=== PATIENT | female | born 1980 | race Caucasian/White ===

== ENCOUNTER 2017-11-25 20:30 | Outpatient (CLI) | payer MEDICARE, MEDICAID | END 2017-11-25 20:31 | disposition home or self-care (01) | LOC: SLEEPLAB 20:30 | PROVIDERS: ATTEND Family Medicine | DX: G47.33 Obstructive sleep apnea (adult) (pediatric) (principal); R53.83 Other fatigue; E66.9 Obesity, unspecified; R06.83 Snoring; I10 Essential (primary) hypertension; G47.00 Insomnia, unspecified; G47.10 Hypersomnia, unspecified; F31.9 Bipolar disorder, unspecified; Z68.42 Body mass index [BMI] 45.0-49.9, adult | CPT/HCPCS: 95810 ==

== ENCOUNTER 2017-12-29 19:30 | Outpatient (CLI) | payer MEDICARE, MEDICAID | END 2017-12-29 19:31 | disposition home or self-care (01) | LOC: SLEEPLAB 19:30 | PROVIDERS: ATTEND Family Medicine | DX: G47.33 Obstructive sleep apnea (adult) (pediatric) (principal); R53.83 Other fatigue; E66.9 Obesity, unspecified; R06.83 Snoring; Z68.42 Body mass index [BMI] 45.0-49.9, adult | CPT/HCPCS: 95811 ==

== ENCOUNTER 2018-07-08 04:48 | Outpatient (CLI) | payer MEDICARE, MEDICAID ==
[2018-07-08 09:26] LABS: #Eosinphils 0.1 thou/uL (0.0-0.7); #Lymphocytes 2.4 thou/uL (1.20-3.40); #Monocytes 0.5 thou/uL (0.11-0.59); #Neutrophils 6.9 thou/uL (1.40-6.50); %Basophils 0.1 % (0.0-1.0); %Eosinophils 1.4 % (0.0-10.0); %Lymphocytes 23.6 % (21.0-51.0); %Monocytes 5.4 % (0.0-10.0); %Neutrophils 69.4 % (42.0-75.0); Hemoglobin 14.6 g/dL (12.0-16.0); Mean Corpuscular HGB CONC 32.7 g/dL (32.0-36.0); Mean Corpuscular Hemoglobin 28.7 pg (27.0-31.0); Mean Corpuscular Volume 87.9 fL (78.0-98.0); Mean Platelet Volume 7.4 fL (7.4-10.4); Platelet Count 263 thou/uL (130-400); RBC Distribution Width 13.4 % (11.5-14.5); Red Blood Cell (RBC) Count 5.09 mill/uL (4.20-5.40); White Blood Cell (WBC) Count 9.9 thou/uL (4.8-10.8)
[2018-07-08 09:33] LABS: BHCG - Serum Negative (NEGATIVE); Pregs Control Background? CLEAR/WHITE (CLR/WHITE); Pregs Control Bar Appear? YES (CONTROL BAR)
--- NOTE | 2018-07-08 09:34 | RAD ---
XR Chest Pa Lat STANDARD HISTORY: Preop COMPARISON: None. FINDINGS: Heart size is upper limits of normal. Mediastinal structures appear unremarkable. The lungs are clear of infiltrates. No significant bony findings. IMPRESSION: No active intrathoracic disease.
[2018-07-08 09:53] LABS: ALT (SGPT) 26 U/L (8-55); AST (SGOT) 14 U/L (5-34); Albumin 4.6 g/dL (3.5-5.0); Alkaline Phosphatase 75 U/L (40-150); Anion Gap 14 mmol/L (10-20); BUN (Urea Nitrogen) 11 mg/dL (7.0-18.7); Bilirubin, Direct 0.2 mg/dL (0.1-0.3); Bilirubin, Total 0.4 mg/dL (0.2-1.2); Calc. Creatinine Clearance 0 mL/min (70-130); Calcium 9.9 mg/dL (7.8-10.44); Carbon Dioxide 27 mmol/L (22-29); Chloride 103 mmol/L (98-107); Estimated GFR-MDRD 61; Globulin 3.2 g/dL (2.4-3.5); Glucose 102 mg/dL (70-105); Potassium 3.6 mmol/L (3.5-5.1); Protein, Total 7.8 g/dL (6.0-8.3); Sodium 140 mmol/L (136-145)
== END 2018-07-08 04:49 | disposition home or self-care (01) ==
LOC: LABBT 04:48
PROVIDERS: ATTEND Surgery
DX: Z01.818 Encounter for other preprocedural examination (principal); G47.30 Sleep apnea, unspecified; Z68.41 Body mass index [BMI] 40.0-44.9, adult
CPT/HCPCS: 71046; 80053; 80076; 83036; 84703; 85025; 93005; 93010

== ENCOUNTER 2018-07-08 08:30 | Inpatient (IN) | payer MEDICARE, MEDICAID ==
[2018-07-08 08:36] VITALS: BMI 47.0
[2018-07-13] MEDS ORDERED: Fentanyl 100 MCG/2 ML VIAL ONE ×3 (06:33→09:12)
[2018-07-13] MEDS ORDERED: Lidocaine 2% Jelly 5 ML TUBE ONE (06:33)
[2018-07-13] MEDS ORDERED: Heparin 5,000 UNITS/ML VIAL ONE (06:35)
[2018-07-13] MEDS ORDERED: Midazolam HCl 2 mg/2 ml Vial ONE (07:10)
[2018-07-13] MEDS ORDERED: Bupivacaine/Epinephrine 0.25% 30 ML VIAL ONE (07:39)
[2018-07-13] MEDS ORDERED: Hydrocodone-Acetamin 15 ML UDCUP PO PRN (08:38)
[2018-07-13] MEDS ORDERED: diphenhydrAMINE 50 MG/ML VIAL IVP PRN ×2 (08:38→09:16)
[2018-07-13] MEDS ORDERED: Promethazine HCl 25 MG/ML VIAL IM PRN ×3 (08:38→09:16)
[2018-07-13] MEDS ORDERED: Dextrose 50% Abboject 50 ML SYRINGE SLOW IVP PRN (08:38)
[2018-07-13] MEDS ORDERED: Ondansetron PF 4 MG/2 ML Vial IVP PRN ×2 (08:38→09:16)
[2018-07-13] MEDS ORDERED: Dextrose 5% in Water 1,000 ML IV PRN (08:38)
[2018-07-13] MEDS ORDERED: hydrALAZINE 20 MG/ML VIAL SLOW IVP PRN (08:38)
[2018-07-13] MEDS ORDERED: Ondansetron HCl/PF 4 MG/2 ML Vial IVP PRN (08:48)
[2018-07-13] MEDS ORDERED: Promethazine HCl 25 MG/ML VIAL SLOW IVP PRN (08:48)
[2018-07-13] MEDS ORDERED: Promethazine HCl 25 MG/ML VIAL ONE (08:59)
[2018-07-13] MEDS ORDERED: Naloxone HCl 0.4 mg/ml Vial IV PRN (09:16)
[2018-07-13] MEDS ORDERED: Ketorolac Tromethamine 30 MG/ML VIAL IVP PRN (09:16)
[2018-07-13] MEDS ORDERED: diphenhydrAMINE 25 MG CAP PO PRN (09:16)
[2018-07-13] MEDS ORDERED: fentaNYL Citrate/PF 2,000 MCG in Sodium Chloride 0.9% 60 ML IV PRN (09:16)
[2018-07-13] MEDS ORDERED: Zolpidem Tartrate 5 MG TAB PO PRN (09:16)
[2018-07-13] MEDS ORDERED: diphenhydrAMINE 50 MG/ML VIAL IM PRN (09:16)
[2018-07-13] MEDS ORDERED: Ondansetron PF 4 MG/2 ML Vial ONE (09:22)
[2018-07-13] MEDS ORDERED: Rocuronium Bromide 10 MG/ML (10ML VIAL) ONE (09:22)
[2018-07-13] MEDS ORDERED: Ketorolac Tromethamine 30 MG/ML VIAL ONE (09:22)
[2018-07-13] MEDS ORDERED: Glycopyrrolate 0.2 MG/ML 5 ML SYRINGE ONE (09:22)
[2018-07-13] MEDS ORDERED: PROPOFOL 200 MG/20 ML VIAL ONE (09:22)
[2018-07-13] MEDS ORDERED: Lidocaine 1% PF 5 ML VIAL ONE (09:22)
[2018-07-13] MEDS ORDERED: PHENYLEPHRINE-NS 100 MCG/ML 10 ML SYRINGE ONE (09:22)
[2018-07-13] MEDS ORDERED: PROVENTIL INHALER 6.7 G (200 INHALATIONS) ONE (09:22)
[2018-07-13] MEDS ORDERED: ePHEDrine 50 MG/ML VIAL ONE (09:22)
[2018-07-13] MEDS ORDERED: Dexamethasone 20 MG/5 ML VIAL ONE (09:22)
[2018-07-13] MEDS ORDERED: Communication Order-Pharmacy FS SCH (09:30)
[2018-07-13] MEDS: Pantoprazole 40 MG VIAL IVP SCH (10:54)
[2018-07-13] MEDS: Enoxaparin Sodium 40 MG/0.4 ML SYRINGE SC SCH (10:56)
--- NOTE | 2018-07-13 11:17 | OP ---
DATE OF PROCEDURE: 07/13/2018 PREOPERATIVE DIAGNOSIS: Morbid obesity. PROCEDURE PERFORMED: Laparoscopic sleeve gastrectomy, esophagogastroscopy. INDICATIONS: A 37-year-old female morbidly obese, who has attempted multiple weight loss programs without success. FINDINGS: 38-Sami bougie used. DESCRIPTION OF PROCEDURE: After informed consent was obtained, the patient was taken to the operating room and given general endotracheal anesthesia. She was placed in the supine position. Abdomen was prepped and draped in usual fashion. Local anesthesia infiltrated subcutaneously, and a 12 mm incision was performed approximately 8 inches below the xiphoid slightly to left. Veress needle inserted. Drop test performed. Pneumoperitoneum was created to a volume of 2 L of carbon dioxide. Utilizing a bladeless 12 mm trocar and 0-degree laparoscope, direct visual entry into abdominal cavity was performed. Pneumoperitoneum was created to a pressure of 15 mmHg. The patient was placed in steep reverse Trendelenburg position. Nilo liver retractor inserted. Left lobe of the liver retracted superiorly. Pylorus identified, 12 mm port placed right beneath it, and two 12s placed in the left subcostal. The omentum was taken off the greater curvature 5 cm from the pylorus utilizing a LigaSure. Short gastrics divided with the LigaSure and left crura divided with LigaSure. A 38-Sami bougie inserted, directed into the antrum. The linear 60 mm green load stapler used to divide the antrum to the bougie, gold load along the bougie, and a series of blues through the angle of His. Intraoperative endoscopy was performed. The video endoscope inserted under direct vision and advanced into the sleeve. The staple line inspected. There was no bleeding. Staple line then tested by inflating the new stomach with pressurized air and water. There was no air leak. Stomach decompressed, scope removed. The remnant stomach removed from the abdomen through the left lateral port site. The fascia closed with 0 Vicryl suture and the GraNee needle. Trocars and retractors removed. Skin closed with interrupted 4-0 Rapide. Dermabond applied. The patient tolerated the procedure well, transferred to Recovery in good condition. Sponge and needle count verified correct x2. Job ID: [id number]
[2018-07-13] MEDS: D5 1/2 NS w/20 mEq KCL 1,000 ML IV SCH ×2 (13:54→21:54)
[2018-07-14] MEDS: D5 1/2 NS w/20 mEq KCL 1,000 ML IV SCH (05:39)
[2018-07-14 06:44] LABS: #Eosinphils 0.1 thou/uL (0.0-0.7); #Lymphocytes 2.3 thou/uL (1.20-3.40); #Monocytes 0.6 thou/uL (0.11-0.59); #Neutrophils 6.9 thou/uL (1.40-6.50); %Basophils 0.2 % (0.0-1.0); %Eosinophils 0.6 % (0.0-10.0); %Lymphocytes 22.9 % (21.0-51.0); %Monocytes 6.3 % (0.0-10.0); %Neutrophils 70.1 % (42.0-75.0); Hemoglobin 11.8 g/dL (12.0-16.0); Mean Corpuscular HGB CONC 33.1 g/dL (32.0-36.0); Mean Corpuscular Hemoglobin 29.2 pg (27.0-31.0); Mean Corpuscular Volume 88.4 fL (78.0-98.0); Mean Platelet Volume 7.5 fL (7.4-10.4); Platelet Count 240 thou/uL (130-400); RBC Distribution Width 13.2 % (11.5-14.5); Red Blood Cell (RBC) Count 4.04 mill/uL (4.20-5.40); White Blood Cell (WBC) Count 9.9 thou/uL (4.8-10.8)
[2018-07-14 07:00] LABS: Anion Gap 8 mmol/L (10-20); BUN (Urea Nitrogen) 8 mg/dL (7.0-18.7); Calc. Creatinine Clearance 231 mL/min (70-130); Calcium 8.6 mg/dL (7.8-10.44); Carbon Dioxide 29 mmol/L (22-29); Chloride 103 mmol/L (98-107); Estimated GFR-MDRD 79; Glucose 94 mg/dL (70-105); Potassium 4.3 mmol/L (3.5-5.1); Sodium 136 mmol/L (136-145)
[2018-07-14 07:59] VITALS: BP 112/74; TEMP 98.5
--- NOTE | 2018-07-14 08:24 | RAD ---
EXAM: XR UGI Single Contrast No Air PROVIDED CLINICAL HISTORY: Post gastric sleeve procedure COMPARISON: None FINDINGS: Approximately 15 mL of Gastrografin was administered by mouth. There is mild transient holdup of cont rast at the GE junction, but contrast eventually flows into the stomach and subsequently into the small bowel without significant holdup of contrast. There is no extravasation of contrast seen to sug gest a leak. IMPRESSION: Postsurgical changes related to gastric sleeve procedure. No extravasation of contrast is seen to sug gest a leak.
[2018-07-14] MEDS: Enoxaparin Sodium 40 MG/0.4 ML SYRINGE SC SCH (08:29)
[2018-07-14] MEDS: Pantoprazole 40 MG VIAL IVP SCH (08:30)
--- NOTE | 2018-07-14 11:23 | DIS ---
DATE OF ADMISSION: 07/13/2018 DATE OF DISCHARGE: 07/14/2018 DISCHARGE DIAGNOSIS: Morbid obesity. PROCEDURES DURING ADMISSION: Laparoscopic sleeve gastrectomy, intraoperative esophagogastroscopy, postoperative Gastrografin swallow. HOSPITAL COURSE: The patient was admitted and taken to the operating room, where she underwent sleeve gastrectomy. Postoperatively, she has done well. She is tolerating liquids well. Pain is controlled on p.o. medications. She was discharged home on hydrocodone and Zofran. She will follow up with me in 2 weeks. Job ID: [id number]
== END 2018-07-14 12:15 | disposition home or self-care (01) | DRG 621 ==
LOC: SURG A 07-13 05:35 → SURG B 07-13 08:38
PROVIDERS: ADMIT Surgery; ATTEND Surgery
PROC: 0DB64Z3 Excision of Stomach, Percutaneous Endoscopic Approach, Vertical (ICD-10-PCS; principal; 2018-07-13)
PROC: 0DJ08ZZ Inspection of Upper Intestinal Tract, Via Natural or Artificial Opening Endoscopic (ICD-10-PCS; 2018-07-13)
DX: E66.01 Morbid (severe) obesity due to excess calories (principal); G47.00 Insomnia, unspecified; G40.909 Epilepsy, unspecified, not intractable, without status epilepticus; F41.9 Anxiety disorder, unspecified; F31.9 Bipolar disorder, unspecified; F90.9 Attention-deficit hyperactivity disorder, unspecified type; Z98.890 Other specified postprocedural states; Z87.891 Personal history of nicotine dependence; Z68.41 Body mass index [BMI] 40.0-44.9, adult
CPT/HCPCS: 36415; 74241; 80048; 85025; 88307; 88312; C9113; J0131; J0690; J1100; J1644; J1650; J1885; J2001; J2250; J2405; J2550; J2704; J3010; J3490

== ENCOUNTER 2020-04-28 09:12 | Inpatient (IN) | payer MEDICARE, MEDICAID ==
[2020-04-28] MEDS ORDERED: Lidocaine 1% PF 5 ML VIAL ONE (09:49)
[2020-04-28] MEDS ORDERED: PROPOFOL 200 MG/20 ML VIAL ONE (09:49)
[2020-04-28] MEDS ORDERED: Glycopyrrolate 0.2 MG/ML 5 ML SYRINGE ONE (09:49)
[2020-04-28] MEDS ORDERED: Dexamethasone 20 MG/5 ML VIAL ONE (09:49)
[2020-04-28] MEDS ORDERED: PHENYLEPHRINE-NS 100 MCG/ML 10 ML SYRINGE ONE (09:49)
[2020-04-28] MEDS ORDERED: Ondansetron PF 4 MG/2 ML Vial ONE (09:49)
[2020-04-28] MEDS ORDERED: Acetaminophen 325 MG TAB PO PRN (10:15)
[2020-04-28 10:58] LABS: #Eosinphils 0.1 thou/uL (0.0-0.7); #Lymphocytes 2.3 thou/uL (1.20-3.40); #Monocytes 0.4 thou/uL (0.11-0.59); #Neutrophils 6.1 thou/uL (1.40-6.50); %Basophils 0.4 % (0.0-1.0); %Eosinophils 1.1 % (0.0-10.0); %Lymphocytes 25.9 % (21.0-51.0); %Monocytes 4.9 % (0.0-10.0); %Neutrophils 67.7 % (42.0-75.0); Hemoglobin 10.8 g/dL (12.0-16.0); Mean Corpuscular HGB CONC 32.7 g/dL (32.0-36.0); Mean Corpuscular Hemoglobin 29.8 pg (27.0-31.0); Mean Platelet Volume 7.5 fL (7.4-10.4); Platelet Count 290 thou/uL (130-400); RBC Distribution Width 12.2 % (11.5-14.5); Red Blood Cell (RBC) Count 3.64 mill/uL (4.20-5.40)
[2020-04-28 11:17] LABS: ALT (SGPT) 13 U/L (8-55); AST (SGOT) 9 U/L (5-34); Albumin 3.7 g/dL (3.5-5.0); Alkaline Phosphatase 76 U/L (40-110); Anion Gap 12 mmol/L (10-20); BUN (Urea Nitrogen) 13 mg/dL (7.0-18.7); Bilirubin, Total 0.2 mg/dL (0.2-1.2); Calc. Creatinine Clearance 0 mL/min (70-130); Calcium 9.3 mg/dL (7.8-10.44); Carbon Dioxide 30 mmol/L (22-29); Chloride 103 mmol/L (98-107); Glucose 81 mg/dL (70-105); Potassium 4.4 mmol/L (3.5-5.1); Protein, Total 6.7 g/dL (6.0-8.3); Sodium 141 mmol/L (136-145)
[2020-04-28] MEDS: Morphine 4 MG/ML VIAL IV PRN (11:18)
[2020-04-28 12:34] VITALS: BMI 23.0
[2020-04-28 13:29] LABS: SARS-CoV-2 NAA Rapid Test Not Detected (NotDetected)
[2020-04-28] MEDS: Vancomycin 1 GM in Premix Bag 1 BAG IVPB SCH ×2 (13:59→19:40)
[2020-04-28] MEDS: Clindamycin/D5W 600 MG in Premix Bag 1 BAG IVPB SCH ×3 (14:06→21:15)
[2020-04-28] MEDS ORDERED: XYLOCAINE 2%-EPI 1:100,000 20 ML VIAL ONE (14:39)
[2020-04-28] MEDS ORDERED: Bupivacaine 0.25% HCL 30 ML VIAL ONE (14:39)
[2020-04-28] MEDS ORDERED: Fentanyl 100 MCG/2 ML VIAL ONE ×3 (14:41→16:28)
[2020-04-28] MEDS ORDERED: Midazolam HCl 2 mg/2 ml Vial ONE (14:41)
[2020-04-28] MEDS ORDERED: HYDROmorphone 0.5 MG/0.5 ML SYRINGE ONE (15:57)
[2020-04-28] MEDS ORDERED: Morphine 4 MG/ML VIAL SLOW IVP PRN (16:19)
[2020-04-28] MEDS ORDERED: HYDROcodone/Acetaminophen 7.5/325 mg Tablet PO PRN (16:19)
[2020-04-28] MEDS ORDERED: HYDROcodone/Acetaminophen 7.5/325 mg Tablet ONE (16:31)
[2020-04-28] MEDS: Lactated Ringer's 1,000 ML IV SCH ×3 (17:00→18:21)
[2020-04-28] MEDS ORDERED: FLU VACC QS2020-21(6MOS UP)/PF 60 MCG/0.5 ML SYRINGE IM ONE (18:00)
[2020-04-28] MEDS: Famotidine 20 MG TAB PO SCH (19:40)
[2020-04-28] MEDS: Morphine 2 MG/ML VIAL SLOW IVP PRN (19:41)
[2020-04-28] MEDS: HYDROcodone/Acetaminophen 7.5/325 mg Tablet PO PRN (22:27)
[2020-04-29] MEDS: Morphine 2 MG/ML VIAL SLOW IVP PRN (00:49)
[2020-04-29] MEDS: Lactated Ringer's 1,000 ML IV SCH (02:42)
[2020-04-29] MEDS: HYDROcodone/Acetaminophen 7.5/325 mg Tablet PO PRN ×3 (03:57→19:24)
[2020-04-29] MEDS: Clindamycin/D5W 600 MG in Premix Bag 1 BAG IVPB SCH ×3 (03:58→21:32)
[2020-04-29] MEDS: Vancomycin 1 GM in Premix Bag 1 BAG IVPB SCH ×3 (03:58→19:26)
[2020-04-29 06:46] LABS: #Basophils 0.1 thou/uL (0.0-0.2); #Lymphocytes 1.9 thou/uL (1.20-3.40); #Monocytes 0.5 thou/uL (0.11-0.59); #Neutrophils 5.9 thou/uL (1.40-6.50); %Basophils 0.6 % (0.0-1.0); %Eosinophils 0.2 % (0.0-10.0); %Lymphocytes 23.1 % (21.0-51.0); %Monocytes 5.9 % (0.0-10.0); %Neutrophils 70.2 % (42.0-75.0); Hemoglobin 9.6 g/dL (12.0-16.0); Mean Corpuscular HGB CONC 32.5 g/dL (32.0-36.0); Mean Corpuscular Hemoglobin 28.9 pg (27.0-31.0); Mean Corpuscular Volume 88.8 fL (78.0-98.0); Mean Platelet Volume 7.8 fL (7.4-10.4); Platelet Count 312 thou/uL (130-400); RBC Distribution Width 12.1 % (11.5-14.5); Red Blood Cell (RBC) Count 3.32 mill/uL (4.20-5.40); White Blood Cell (WBC) Count 8.4 thou/uL (4.8-10.8)
[2020-04-29 07:04] LABS: Anion Gap 13 mmol/L (10-20); BUN (Urea Nitrogen) 9 mg/dL (7.0-18.7); Calc. Creatinine Clearance 130 mL/min (70-130); Calcium 8.4 mg/dL (7.8-10.44); Carbon Dioxide 28 mmol/L (22-29); Chloride 100 mmol/L (98-107); Glucose 100 mg/dL (70-105); Potassium 4.3 mmol/L (3.5-5.1); Sodium 137 mmol/L (136-145)
[2020-04-29] MEDS: Morphine 4 MG/ML VIAL IV PRN ×2 (08:57→16:03)
[2020-04-29] MEDS: Famotidine 20 MG TAB PO SCH ×2 (08:57→19:25)
[2020-04-29] MEDS ORDERED: lamoTRIgine 100 MG TAB PO SCH (09:00)
[2020-04-29] MEDS ORDERED: Aripiprazole 10 MG TAB PO SCH (09:00)
[2020-04-29] MEDS ORDERED: DULoxetine 60 MG CAP PO SCH (09:00)
[2020-04-29] MEDS ORDERED: CLONAZEPAM 1 MG PO SCH (09:00)
[2020-04-29] MEDS ORDERED: Polyethylene Glycol 3350 17 GM Packet PO PRN (09:27)
[2020-04-29] MEDS ORDERED: Docusate 100 MG CAP PO PRN (09:28)
[2020-04-29] MEDS: clonazePAM 0.5 MG TAB PO SCH (11:35)
[2020-04-29 12:25] LABS: Vancomycin, Trough 18.3 ug/mL
[2020-04-29] MEDS: clonazePAM 1 MG TAB PO SCH (19:24)
[2020-04-29] MEDS: lamoTRIgine 100 MG TAB PO SCH (19:25)
[2020-04-29] MEDS: DULoxetine 60 MG CAP PO SCH (19:25)
[2020-04-29] MEDS: Aripiprazole 10 MG TAB PO SCH (19:25)
[2020-04-30] MEDS: Morphine 4 MG/ML VIAL IV PRN (06:06)
[2020-04-30] MEDS: Clindamycin/D5W 600 MG in Premix Bag 1 BAG IVPB SCH ×2 (06:07→13:28)
[2020-04-30] MEDS: Vancomycin 1 GM in Premix Bag 1 BAG IVPB SCH ×3 (06:07→20:05)
[2020-04-30 06:09] LABS: #Basophils 0.1 thou/uL (0.0-0.2); #Eosinphils 0.2 thou/uL (0.0-0.7); #Lymphocytes 3.1 thou/uL (1.20-3.40); #Monocytes 0.5 thou/uL (0.11-0.59); #Neutrophils 3.4 thou/uL (1.40-6.50); %Basophils 0.8 % (0.0-1.0); %Eosinophils 3.2 % (0.0-10.0); %Lymphocytes 42.5 % (21.0-51.0); %Monocytes 6.2 % (0.0-10.0); %Neutrophils 47.4 % (42.0-75.0); Hemoglobin 9.6 g/dL (12.0-16.0); Mean Corpuscular Hemoglobin 29.5 pg (27.0-31.0); Mean Corpuscular Volume 89.3 fL (78.0-98.0); Mean Platelet Volume 7.6 fL (7.4-10.4); Platelet Count 257 thou/uL (130-400); RBC Distribution Width 12.4 % (11.5-14.5); Red Blood Cell (RBC) Count 3.24 mill/uL (4.20-5.40); White Blood Cell (WBC) Count 7.2 thou/uL (4.8-10.8)
[2020-04-30 06:36] LABS: Anion Gap 9 mmol/L (10-20); BUN (Urea Nitrogen) 11 mg/dL (7.0-18.7); Calc. Creatinine Clearance 123 mL/min (70-130); Calcium 8.3 mg/dL (7.8-10.44); Carbon Dioxide 30 mmol/L (22-29); Chloride 104 mmol/L (98-107); Glucose 78 mg/dL (70-105); Potassium 3.9 mmol/L (3.5-5.1); Sodium 139 mmol/L (136-145)
[2020-04-30] MEDS: Famotidine 20 MG TAB PO SCH ×2 (08:11→20:04)
[2020-04-30] MEDS: clonazePAM 1 MG TAB PO SCH ×2 (08:11→20:05)
[2020-04-30] MEDS: HYDROcodone/Acetaminophen 7.5/325 mg Tablet PO PRN ×3 (08:13→18:47)
[2020-04-30] MEDS: clonazePAM 0.5 MG TAB PO SCH (11:48)
[2020-04-30] MEDS: Aripiprazole 10 MG TAB PO SCH (20:04)
[2020-04-30] MEDS: DULoxetine 60 MG CAP PO SCH (20:04)
[2020-04-30] MEDS: lamoTRIgine 100 MG TAB PO SCH (20:05)
[2020-05-01] MEDS: Clindamycin/D5W 600 MG in Premix Bag 1 BAG IVPB SCH ×3 (00:02→15:55)
[2020-05-01] MEDS: Vancomycin 1 GM in Premix Bag 1 BAG IVPB SCH ×2 (05:18→12:29)
[2020-05-01 06:25] LABS: #Eosinphils 0.2 thou/uL (0.0-0.7); #Lymphocytes 1.8 thou/uL (1.20-3.40); #Monocytes 0.4 thou/uL (0.11-0.59); #Neutrophils 3.3 thou/uL (1.40-6.50); %Basophils 0.9 % (0.0-1.0); %Eosinophils 3.4 % (0.0-10.0); %Lymphocytes 31.6 % (21.0-51.0); %Monocytes 6.6 % (0.0-10.0); %Neutrophils 57.6 % (42.0-75.0); Mean Corpuscular HGB CONC 32.3 g/dL (32.0-36.0); Mean Corpuscular Hemoglobin 29.4 pg (27.0-31.0); Mean Platelet Volume 7.7 fL (7.4-10.4); Platelet Count 256 thou/uL (130-400); RBC Distribution Width 12.4 % (11.5-14.5); Red Blood Cell (RBC) Count 3.41 mill/uL (4.20-5.40); White Blood Cell (WBC) Count 5.7 thou/uL (4.8-10.8)
[2020-05-01 06:44] LABS: Anion Gap 10 mmol/L (10-20); BUN (Urea Nitrogen) 11 mg/dL (7.0-18.7); Calc. Creatinine Clearance 112 mL/min (70-130); Calcium 8.5 mg/dL (7.8-10.44); Carbon Dioxide 30 mmol/L (22-29); Chloride 102 mmol/L (98-107); Glucose 92 mg/dL (70-105); Potassium 3.9 mmol/L (3.5-5.1); Sodium 138 mmol/L (136-145)
[2020-05-01] MEDS: Famotidine 20 MG TAB PO SCH (08:17)
[2020-05-01] MEDS: clonazePAM 1 MG TAB PO SCH (08:17)
[2020-05-01] MEDS: HYDROcodone/Acetaminophen 7.5/325 mg Tablet PO PRN ×2 (09:20→15:17)
[2020-05-01] MEDS: clonazePAM 0.5 MG TAB PO SCH (12:29)
[2020-05-01 15:45] VITALS: TEMP 98
[2020-05-01 16:13] VITALS: BP 98/63
== END 2020-05-01 16:20 | disposition home or self-care (01) | DRG 585 ==
LOC: T4-B 09:37
PROVIDERS: ADMIT Family Medicine; ATTEND Family Medicine
PROC: 0HBT0ZZ Excision of Right Breast, Open Approach (ICD-10-PCS; principal; 2020-04-28)
DX: N61.1 Abscess of the breast and nipple (principal); N64.1 Fat necrosis of breast; Z20.822 Contact with and (suspected) exposure to COVID-19; F32.9 Major depressive disorder, single episode, unspecified; F41.9 Anxiety disorder, unspecified; F90.9 Attention-deficit hyperactivity disorder, unspecified type; F60.3 Borderline personality disorder; Z79.899 Other long term (current) drug therapy; Z98.84 Bariatric surgery status; Z87.891 Personal history of nicotine dependence
CPT/HCPCS: 36415; 80048; 80053; 80202; 82607; 82746; 84425; 85025; 87070; 87076; 87205; 88304; J1100; J1170; J2250; J2270; J2405; J2704; J3010; J3370; J3490; S0020; U0002

== ENCOUNTER 2021-11-20 14:37 | Outpatient (CLI) | payer MEDICARE, MEDICAID | END 2021-11-20 14:38 | disposition home or self-care (01) | LOC: BICMAMMO 14:37 | PROVIDERS: ATTEND Surgery | DX: N63.0 Unspecified lump in unspecified breast (principal); R92.8 Other abnormal and inconclusive findings on diagnostic imaging of breast | CPT/HCPCS: 76642; 77066; G0279 ==

== ENCOUNTER 2021-12-05 08:57 | Outpatient (CLI) | payer MEDICARE, MEDICAID ==
[2021-12-05 10:59] LABS: #Eosinphils 0.1 10x3/uL (0.0-0.5); #Monocytes 0.4 10x3/uL (0.0-1.1); #Neutrophils 6.9 10x3/uL (1.5-8.4); %Basophils 0.3 % (0.0-2.0); %Eosinophils 1.1 % (0.0-6.0); %Lymphocytes 18.8 % (18.0-47.0); %Monocytes 4.4 % (0.0-10.0); %Neutrophils 75.2 % (40.0-75.0); Hemoglobin 13.1 g/dL (12.0-15.5); Mean Corpuscular HGB CONC 33.2 g/dL (32.0-36.0); Mean Corpuscular Hemoglobin 28.5 pg (27.0-33.0); Mean Corpuscular Volume 85.9 fl (81.6-98.3); Mean Platelet Volume 11.2 fl (7.4-10.4); Platelet Count 307 10x3/uL (150-450); RBC Distribution Width 14.1 % (11.5-14.5); White Blood Cell (WBC) Count 9.1 10x3/uL (3.5-10.5)
[2021-12-05 11:11] LABS: Anion Gap 17 mmol/L (10-20); BUN (Urea Nitrogen) 25 mg/dL (7.0-18.7); Calc. Creatinine Clearance 0 mL/min (70-130); Calcium 9.4 mg/dL (7.8-10.44); Carbon Dioxide 20 mmol/L (22-29); Chloride 106 mmol/L (98-107); Estimated GFR 77; Glucose 103 mg/dL (70-105); Potassium 4.1 mmol/L (3.5-5.1); Sodium 139 mmol/L (136-145)
== END 2021-12-05 08:58 | disposition home or self-care (01) ==
LOC: LABBT 08:57
PROVIDERS: ATTEND Surgery
DX: Z01.812 Encounter for preprocedural laboratory examination (principal); N63.0 Unspecified lump in unspecified breast; Z20.822 Contact with and (suspected) exposure to COVID-19
CPT/HCPCS: 80048; 85025; 87811

== ENCOUNTER 2021-12-10 10:34 | Day surgery (SDC) | payer MEDICARE, MEDICAID ==
[2021-12-06 10:36] VITALS: BMI 22.3
[2021-12-10] MEDS ORDERED: EPINEPHrine 1 MG/ML AMP ONE (13:26)
[2021-12-10] MEDS ORDERED: Methylene Blue 50 MG/10 ML AMPUL ONE (13:26)
[2021-12-10] MEDS ORDERED: Bupivacaine 0.25% HCL 30 ML VIAL ONE (13:26)
[2021-12-10] MEDS ORDERED: Midazolam HCl 2 mg/2 ml Vial ONE (13:29)
[2021-12-10] MEDS ORDERED: fentaNYL Citrate/PF 100 MCG/2 ML SYRINGE ONE ×2 (13:29→15:00)
[2021-12-10] MEDS ORDERED: Sodium Chloride 0.9% 100 ML ONE (13:35)
[2021-12-10] MEDS ORDERED: CEFAZOLIN 2 GM VIAL ONE (13:35)
[2021-12-10] MEDS ORDERED: Famotidine/PF 20 mg/2ml Vial ONE (13:47)
[2021-12-10] MEDS ORDERED: Ketorolac Tromethamine 30 MG/ML VIAL ONE (13:49)
[2021-12-10] MEDS ORDERED: Succinylcholine 200 MG/10 ml SYRINGE FS ONE (13:49)
[2021-12-10] MEDS ORDERED: Lidocaine 1% PF 5 ML VIAL ONE (13:49)
[2021-12-10] MEDS ORDERED: Glycopyrrolate 0.2 MG/ML 5 ML SYRINGE ONE ×2 (13:49→14:33)
[2021-12-10] MEDS ORDERED: Ondansetron PF 4 MG/2 ML Vial ONE (13:49)
[2021-12-10] MEDS ORDERED: PROPOFOL 200 MG/20 ML VIAL ONE (13:49)
[2021-12-10] MEDS ORDERED: HYDROcodone/Acetaminophen 5/325 mg Tablet ONE (15:59)
== END 2021-12-10 16:55 | disposition home or self-care (01) ==
LOC: SDC 10:34
PROVIDERS: ATTEND Surgery
PROC: 0HBT0ZZ Excision of Right Breast, Open Approach (ICD-10-PCS; principal; 2021-12-10)
DX: N60.11 Diffuse cystic mastopathy of right breast (principal); Z87.891 Personal history of nicotine dependence; Z79.899 Other long term (current) drug therapy; Z88.8 Allergy status to other drugs, medicaments and biological substances
CPT/HCPCS: 88305; 88342; J0171; J0690; J1885; J2250; J2405; J2704; J3490; Q9968; S0020; S0028

== ENCOUNTER 2022-09-23 05:55 | Emergency (ER) | payer MEDICARE, MEDICAID ==
[2022-09-23 06:31] LABS: #Eosinphils 0.2 thou/uL (0.0-0.7); #Monocytes 0.5 thou/uL (0.11-0.59); #Neutrophils 3.4 thou/uL (1.40-6.50); %Basophils 0.6 % (0.0-1.0); %Eosinophils 3.5 % (0.0-10.0); %Lymphocytes 38.7 % (21.0-51.0); %Monocytes 7.7 % (0.0-10.0); %Neutrophils 49.4 % (42.0-75.0); Hemoglobin 11.6 g/dL (12.0-16.0); Mean Corpuscular HGB CONC 31.3 g/dL (32.0-36.0); Mean Corpuscular Hemoglobin 27.2 pg (27.0-31.0); Mean Corpuscular Volume 86.9 fl (78.0-98.0); Mean Platelet Volume 10.1 fL (7.4-10.4); Platelet Count 283 10x3/uL (130-400); RBC Distribution Width 15.1 % (11.5-14.5); Red Blood Cell (RBC) Count 4.27 mill/uL (4.20-5.40); White Blood Cell (WBC) Count 6.9 10x3/uL (4.8-10.8)
[2022-09-23 06:55] LABS: ALT (SGPT) 7 U/L (8-55); AST (SGOT) 8 U/L (5-34); Albumin 4.5 g/dL (3.5-5.0); Alkaline Phosphatase 53 U/L (40-110); Anion Gap 15 mmol/L (10-20); BUN (Urea Nitrogen) 20 mg/dL (7.0-18.7); Bilirubin, Total 0.4 mg/dL (0.2-1.2); Calc. Creatinine Clearance 0 mL/min (70-130); Calcium 9.4 mg/dL (7.8-10.44); Carbon Dioxide 23 mmol/L (22-29); Chloride 105 mmol/L (98-107); Estimated GFR 78; Globulin 2.8 g/dL (2.4-3.5); Glucose 69 mg/dL (70-105); Potassium 3.9 mmol/L (3.5-5.1); Protein, Total 7.3 g/dL (6.0-8.3); Sodium 139 mmol/L (136-145)
[2022-09-23 06:56] LABS: Acetaminophen Less than 10 mcg/mL (10.0-30.0); Alcohol Less than 10.0 mg/dL (Less than 10); Salicylate Less than 8.0 mg/dL (15.0-30.0)
[2022-09-23 09:33] LABS: Pregnancy Test - Urine (BHCG) Negative (Negative); Pregu Control Background? CLEAR/WHITE (CLR/WHITE); Pregu Control Bar Appear? YES (CONTROL BAR); Specific Gravity 1.016 (1.002-1.036)
[2022-09-23 09:40] LABS: Amphetamine Detected (NotDetected); Barbiturates Screen Not Detected (NotDetected); Benzodiazepine Screen Not Detected (NotDetected); Cocaine Metabolite Screen Not Detected (NotDetected); Methadone Not Detected (NotDetected); Methamphetamine Not Detected (NotDetected); Opiate Screen Not Detected (NotDetected); Oxycodone Screen Not Detected (NotDetected); Phencyclidine (PCP) Not Detected (NotDetected); THC/Cannabinoid Screen Detected (NotDetected); Tricyclic Screen Not Detected (NotDetected)
[2022-09-23 10:07] LABS: Bacteria/HPF 4+ HPF (None Seen); Bilirubin Negative (Negative); Blood, Urine Negative (Negative); CAUTI Indications for Culture Urological Procedure; Clarity Turbid (Clear); Glucose, Urine (Dipstick) Normal (Negative); Ketone, Urine Negative (Negative); Leukocyte 500 Leu/uL (Negative); Nitrite 2+ (Negative); Protein, Urine (Dipstick) Negative (Neg-Trace); RBC/HPF 0-3 HPF (0-3); Specific Gravity, Urine 1.016 (1.002-1.036); Urobilinogen Normal mg/dL (Less than 2); WBC/HPF 21-50 HPF (0-3); pH, Urine 5.5 (5.0-9.0)
[2022-09-23 10:10] LABS: Urine Culture Reflex Yes Yes
[2022-09-23] MEDS ORDERED: Cefdinir 300 MG CAP PO SCH (15:45)
== END 2022-09-23 17:39 ==
LOC: ERS 05:55 → EEVIPCON 05:55 → ERS 17:39
DX: F32.A Depression, unspecified (principal); N39.0 Urinary tract infection, site not specified; F17.210 Nicotine dependence, cigarettes, uncomplicated; Z91.148 Patient's other noncompliance with medication regimen for other reason
CPT/HCPCS: 36415; 51701; 80053; 80306; 80307; 81001; 81025; 84443; 85025; 87077; 87086; 87186